=== PATIENT | female | born 1990 | race Caucasian/White ===

== ENCOUNTER 2024-09-07 15:32 | Observation (INO) | payer OTHER, SELFPAY ==
--- NOTE | 2024-09-07 15:32 | OBADM ---
This patient, Pamela Pearson, admitted to the OB room [facility] for observation. Patient/family oriented to hospital policies and general routines including ID bracelet, bed and alarms, visiting hours, pain management, procedures, bathroom and other care routines, personal items, smoking policy, room service/diet, and visiting hours. Patient/Family are encouraged to report perceived risks to care and to ask questions if they do not understand what they are told or what they should do.
[2024-09-07 15:55] VITALS: BMI 22.2
[2024-09-07 16:30] VITALS: BP 100/56; PULSE 89
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
--- OUTSIDE RECORDS SUMMARY | 2024-09-07 16:30 | XMS_ITS | Clinical Summary ---
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 Gender Identity Not on file Sexual Orientation Not on file Last Filed Vital Signs Vital Sign Reading Time Taken Comments Blood Pressure 105/72 07/06/2021 6:25 PM CDT Pulse 109 07/06/2021 6:25 PM CDT Temperature 36.7 C (98 F) 07/06/2021 6:20 PM CDT Respiratory Rate 18 07/06/2021 6:25 PM CDT Oxygen Saturation 97% 07/06/2021 6:25 PM CDT Inhaled Oxygen Concentration - - Weight 52.2 kg (115 lb) 07/06/2021 4:20 PM CDT Height 167.6 cm (5' 6) 07/06/2021 4:20 PM CDT Body Mass Index 18.56 07/06/2021 4:20 PM CDT Plan of Treatment Not on file Insurance [address] [place] [employer] [id number] [place] [address] [facility] Care Teams Stamping Machine Operator Relationship Specialty Start Date End Date Provider, None [place] PCP - General 07/06/21
--- OUTSIDE RECORDS SUMMARY | 2024-09-07 16:31 | XMS_ITS | Referral Summary ---
Author Organization [facility] [address] Address Formerly [facility] 5th [place] [address] Care Team Providers Care Belt Loop Machine Operator Name Role Phone Mayur Pa MD Primary Care Provider [phone] Encounters Date Type Department Care Team Description 08/02/2024 12:45 PM CDT Office Visit [facility] at [address] [place] [address] Rosio Brody MD Palpitations (Primary Dx) 07/05/2024 Telephone [facility] JEFFREY [address] [place] [address] Prachi Lyons MD transfer care 06/21/2024 Results Follow-Up [facility] JEFF[facility] [address] [place] [address] Prachi Lyons MD Drugs of Abuse Screen, Urine with Reflex Confirmation, CBC with auto differential, Hepatitis B Surface Antigen Blood, Additional followed-up results: 11 06/19/2024 2:25 PM CDT Lab [address] Supervision of other normal , antepartum 06/19/2024 Results Follow-Up [facility] JEFFREY [address] [place] [address] Prachi Lyons MD US Ob Under 14 Weeks 06/19/2024 1:00 PM CDT Office Visit [facility]FF[facility] [address] [place] [address] Prachi Lyons MD Supervision of other normal , antepartum (Primary Dx); 1st degree AV block; Vaginal discharge during in first trimester 06/15/2024 Telephone [facility] [facility] [address] [place] [address] Prachi Lyons MD Headache from Last 3 Months Allergies No known active allergies Medications multivitamin tabletIndication s:Vitamin Deficiency Prevention Take 1 tablet by mouth Active Active Problems Problem Noted Date Diagnosed Date Maternal varicella, non-immune 06/21/2024 Overview (06/21/2024): 06/21/2024-will plan to vaccinate Not immune to rubella 06/21/2024 Overview (06/21/2024): 06/22/2024-will plan to vaccinate Supervision of other normal , antepartu m 06/19/2024 Assessment & Plan (06/19/2024 5:14 PM CDT): Doing well Vaginal discharge during in first trim deandre 06/19/2024 Assessment & Plan (06/19/2024 5:06 PM CDT): Vaginitis profile done Palpitations 09/29/2023 Assessment & Plan (09/29/2023 2:40 PM CDT): Reviewed EKG and prior findigns. WIll monitor response to cardiology referral and will check structural echo and r/o electrolyte abnormalities. Check event monitor. 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 - Dr. Pino Last visit was about a year ago. She has done a 30d holter monitor She has had an echo Primary is Dr. Pa. 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 - Dr. Pino Last visit was about a year ago. She has done a 30d holter monitor She has had an echo Primary is Dr. Pa. Chart reviewed Will see if she can get back in to see cardiology My need MFM if they wont. Estimated Date of Delivery Comme nts Yes 12/31/2024 Based on last me nstrual period of 03/26/2024 (Exact Date) Immunizations Immunization Administration Dates Next Due DTaP 01/25/1997, 5,03/31/1993,01/30,1992 HPV, Unspecified 01/16/2007,09/14/2006, 7 Hep B, Adolescent or Pediatric 07/01/1993,1993,02/03/1993 HiB 01/14/1994, 4,01/30/1993,11/25 IPV 01/25/1997, 5,01/30/1993,12/02 Influenza, Quadrivalent, Spl it, Preservative Free, Intramuscular 01/27/2023 Influenza, Unspecified 09/29/2023(Deferr ed: Patient Refused),10/29/2022(Deferred: Patient Refused) MMR 01/25/1997,01/14/1994 Meningococcal A,C,W,Y-TT (Ak a Menquadfi) 01/16/2007 Tdap 07/15/2006 Social History Tobacco Use Types Packs/Day Years Used Date Smoking Tobacco: Never Smokeless Tobacco: Never Tobacco Cessation:Counseling Given: Not Answered Humiliation, Afraid, Rape, and Kick questionnair e Answer Date Recorded Within the last year, have y ou been afraid of your partner or ex-partner? No 06/19/2024 Within the last year, have y ou been humiliated or emotionally abused in other ways by your partner or ex-partner? No Within the last year, have y ou been kicked, hit, slapped, or otherwise physically hurt by your partner or ex-partner? No 06/19/2024 Within the last year, have y ou been raped or forced to have any kind of sexual activity by your partner or ex-partner? No 06/19/2024 PHQ-2 Answer Date Recorded PHQ-2 Total Score (If total score is 3 or more points, staff should administer the PHQ-9) 0 09/29/2023 Estimated Date of Delivery Comme nts Yes 12/31/2024 Based on last me nstrual period of 03/26/2024 (Exact Date) Sex and Gender Information Value Date Recorded Sex Assigned at Not on file Legal Sex Female 3:27 PM CDT Gender Identity Not on file Sexual Orientation Not on file Last Filed Vital Signs Vital Sign Reading Time Taken Comments Blood Pressure 113/77 08/02/2024 1:23 PM CDT Pulse 109 08/02/2024 1:23 PM CDT Temperature 36.7 C (98.1 F) 09/29/2023 9:55 AM CDT Respiratory Rate 18 09/29/2023 9:55 AM CDT Oxygen Saturation 99% 09/29/2023 9:55 AM CDT room air Inhaled Oxygen Concentration - - Weight 59.4 kg (131 lb) 08/02/2024 1:23 PM CDT Height 167.6 cm (5' 6) 08/02/2024 1:23 PM CDT Body Mass Index 21.14 08/02/2024 1:23 PM CDT Plan of Treatment Not on file Procedures Procedure Name Priority Date/Time Associated Diagnosis Comments DIFFERENTIAL AUTO Routine 06/19/2024 2:2 5 PM CDT Supervision of other normal , antepartum ANTIBODY SCREEN Routine 06/19/2024 2:25 PM CDT Supervision of other normal , antepartum ABO/RH Routine 06/19/2024 2:25 PM CDT Supervision of other normal , antepartum VITAMIN D 25 HYDROXY Routine 06/19/2024 2:25 PM CDT Supervision of other normal , antepartum TYPE AND SCREEN Routine 06/19/2024 2:25 PM CDT Supervision of other normal , antepartum CBC WITH AUTO DIFFERENTIAL Routine 06/19/2024 2:25 PM CDT Supervision of other normal , antepartum DRUGS OF ABUSE SCREEN, URINE WITH REFLEX CONFIRMATION Routine 06/19/2024 2:25 PM CDT Supervision of other normal , antepartum URINE CULTURE Routine 06/19/2024 2:25 PM CDT Supervision of other normal , antepartum VARICELLA ZOSTER ANTIBODY, IGG Routine 06/19/2024 2:25 PM CDT Supervision of other normal , antepartum RUBELLA IGG Routine 06/19/2024 2:25 PM CDT Supervision of other normal , antepartum RPR Routine 06/19/2024 2:25 PM CDT Supervision of other normal , antepartum HIV 1/2 ANTIBODY PLUS P24 ANTIGEN Routine 06/19/2024 2:25 PM CDT Supervision of other normal , antepartum HEPATITIS C ANTIBODY Routine 06/19/2024 2:25 PM CDT Supervision of other normal , antepartum HEPATITIS B SURFACE ANTIGEN Routine 06/19/2024 2:25 PM CDT Supervision of other normal , antepartum PAP AND HPV, REFLEX TO HPV GENOTYPES Routine 06/19/2024 2:03 PM CDT SURESWAB ADVANCED VAGINITIS, TMA Routine 06/19/2024 2:03 PM CDT Vaginal discharge during in first trimester N. GONORRHOEAE/C. TRACHOMATIS AMPLIFICATION Routine 06/19/2024 2:03 PM CDT Supervision of other normal , antepartum from Last 3 Months Results * Drugs of Abuse Screen, Urine with Reflex Confirmation (06/19/2024 2:25 PM CDT) [facility] Amphetamine, ur Not Detected CutOff 500ng/mL Comment: Interpretive Data - Amphetamines: Samples containing greater than 500 ng/mL d-methamphetamine or other cross-reacting amphetamine compounds are reported as positive. Amphetamine immunoassays are subject to significant false positive rates due to cross-reactivity of non-amphetamine drugs. Confirmatory testing required for definitive results. Current Interpretive Data was last reviewed 2022. Barbiturates, ur Not Detected CutOff 200ng/mL [facility] ([place]) Comment: Interpretive Data - Barbiturates: Samples containing greater than 200 ng/mL secobarbital or other cross-reacting barbiturate compounds are reported as positive. False positive and false negative results are possible. Confirmatory testing required for definitive results. Current Interpretive Data was last reviewed 2022. Benzodiazepines, ur Not Detected CutOff 100ng/mL [facility] ([place]) Comment: Interpretive Data - Benzodiazepines: Samples containing greater than 100 ng/mL nordiazepam or other cross-reacting compounds are reported as positive. False positive and false negative results are possible. Confirmatory testing required for definitive results. Current Interpretive Data was last reviewed 2022. Cannabinoids, ur Not Detected CutOff 50 ng/mL [facility] ([place]) Comment: Interpretive Data - Cannabinoids: Samples containing greater than 50 ng/mL delta-9 THC -COOH or other cross- reacting compounds are reported as positive. False positive and false negative results are possible. Confirmatory testing required for definitive results. Current Interpretive Data was last reviewed 2022. Cocaine, ur Not Detected CutOff 150ng/mL [facility] ([place]) Comment: Interpretive Data - Cocaine: Samples containing greater than 150 ng/mL benzoylecgonine or other cross- reacting compounds are reported as positive. False positive and false negative results are possible. Confirmatory testing required for definitive results. Current Interpretive Data was last reviewed 2022. Fentanyl, Ur Not Detected CutOff 5 ng/mL [facility] ([place]) Comment: Interpretive Data - Fentanyl: Samples containing greater than 5 ng/mL norfentanyl, fentanyl, or other cross-reacting fentanyl compounds are reported as positive. False positive and false negative results are possible. Confirmatory testing required for definitive results. Current Interpretive Data was last reviewed 2023. Methadone, ur Not Detected CutOff 300ng/mL [facility] ([place]) Comment: Interpretive Data - Methadone: Samples containing greater than 300 ng/mL d,l-methadone or other cross-reacting compounds are reported as positive. False positive and false negative results are possible. Confirmatory testing required for definitive results. Current Interpretive Data was last reviewed 2022. Opiates, ur Not Detected CutOff 300ng/mL [facility] ([place]) Comment: Interpretive Data - Opiates: Samples containing greater than 300 ng/mL morphine or other cross-reacting compounds are reported as positive. False positive and false negative results are possible. Confirmatory testing required for definitive results. Current Interpretive Data was last reviewed 2022. Oxycodone, ur Not Detected CutOff 100ng/mL [facility] ([place]) Comment: Interpretive Data - Oxycodone: Samples containing greater than 100 ng/mL oxycodone or other cross-reacting compounds are reported as positive. False positive and false negative results are possible. Confirmatory testing required for definitive results. Current Interpretive Data was last reviewed 2022. Phencyclidine, ur Not Detected CutOff 25 ng/mL [facility] ([place]) Comment: Interpretive Data - Phencyclidine: Samples containing greater than 25 ng/mL phencyclidine or other cross-reacting compounds are reported as positive. False positive and false negative results are possible. Confirmatory testing required for definitive results. Current Interpretive Data was last reviewed 2022. Urine Creatinine 93 mg/dL [facility]U [facility] ([place]) Comment: Interpretive Data Urine Creatinine: < 10 mg/dL is extremely dilute = or > 10 but < 20 mg/dL is dilute = or > 20 mg/dL is normal Current Interpretive Data was last revised on 2017. Urine 06/19/2024 2:25 PM CDT 06/19/2024 4:04 PM CDT Narrative [facility] ([place]) - 06/19/2024 4:44 PM CDT Drug of Abuse screening is performed by immunoassay for medical purposes only. This is not to be used for Pain Management purposes. If Detected, confirmation testing will be performed for Amphetamines, Cocaine, Fentanyl, Methadone, Opiates, Oxycodone or Phencyclidine. us Prachi Lyons MD LAB URINE ORDERABLE S Final Result [facility] ([place]) [address] [facility] [place] [address] * (ABNORMAL) Differential, auto (06/19/2024 2:25 PM CDT) Neutrophil abs 7.56(H) 1.50 - 6.50 K/cumm Imm gran abs 0.03 0.00 - 0.10 K/cumm [facility] ([place]) Lymphocyte abs 2.22 0.80 - 3.30 K/cumm [facility] ([place]) Monocyte abs 0.56 0.20 - 0.80 K/cumm [facility] ([place]) Eosinophil abs 0.04 0.00 - 0.50 K/cumm [facility] ([place]) Basophil abs 0.04 0.00 - 0.10 K/cumm [facility] ([place]) Neutrophil pct 72.3 % [facility] ([place]) Comment: Interpretive Data Percent cell count reference ranges are not reported, since discordance with absolute values may lead to misinterpretation of CBC data. Current Interpretive Data was last revised on 2017. Imm gran pct 0.3 % [facility] ([place]) Comment: Interpretive Data Percent cell count reference ranges are not reported, since discordance with absolute values may lead to misinterpretation of CBC data. Current Interpretive Data was last revised on 2017. Lymphocyte pct 21.2 % [facility] ([place]) Comment: Interpretive Data Percent cell count reference ranges are not reported, since discordance with absolute values may lead to misinterpretation of CBC data. Current Interpretive Data was last revised on 2017. Monocyte pct 5.4 % [facility] ([place]) Comment: Interpretive Data Percent cell count reference ranges are not reported, since discordance with absolute values may lead to misinterpretation of CBC data. Current Interpretive Data was last revised on 2017. Eosinophil pct 0.4 % [facility] ([place]) Comment: Interpretive Data Percent cell count reference ranges are not reported, since discordance with absolute values may lead to misinterpretation of CBC data. Current Interpretive Data was last revised on 2017. Basophil pct 0.4 % [facility] ([place]) Comment: Interpretive Data Percent cell count reference ranges are not reported, since discordance with absolute values may lead to misinterpretation of CBC data. Current Interpretive Data was last revised on 2017. Blood 06/19/2024 2:25 PM CDT 06/19/2024 3:57 PM CDT us Prachi Lyons MD LAB BLOOD ORDERABLE S Final Result Performing Organization Address [facility]/ZIP Co de Phone Number [facility] ([place]) 1 [place] [address] * HIV 1/2 Antibody plus p24 Antigen Blood (06/19/2024 2:25 PM CDT) [facility] HIV 1/2 ab + p24 ag Nonreactive Nonreactive Comment: Nonreactive for HIV-1 antigen and HIV-1/HIV-2 antibodies. No laboratory evidence of HIV infection. If acute HIV infection is suspected, consider testing for HIV-1 RNA. Testing performed by: [facility], [address] [place] [address], [id number] Blood 06/19/2024 2:25 PM CDT 06/19/2024 7:58 PM CDT us Prachi Lyons MD LAB MICROBIOLOGY - GENERAL ORDERABLES Final Result Performing Organization Address [facility] Co de Phone Number [facility] ([place]) 1 [place] [address] * (ABNORMAL) CBC with auto differential (06/19/2024 2:25 PM CDT) [facility] WBC 10.45(H) 3.80 - 9.90 K/cumm Hgb 13.9 11.9 - 15.5 g/dL [facility] ([place]) Hct 40.1 35.6 - 45.5 % [facility] ([place]) Plt 309 150 - 400 K/cumm [facility] ([place]) MPV 10.6 9.1 - 12.3 fL [facility] ([place]) RBC 4.43 3.90 - 5.20 M/cumm [facility] ([place]) MCV 90.5 81.3 - 96.4 fL [facility] ([place]) MCH 31.4 27.1 - 33.3 pg [facility] ([place]) MCHC 34.7 32.3 - 35.7 g/dL [facility] ([place]) RDW CV 12.8 11.1 - 14.9 % [facility] ([place]) RDW SD 41.8 35.7 - 48.1 fL [facility] ([place]) NRBC abs 0.00 0.00 - 0.01 K/cumm [facility] ([place]) Blood 06/19/2024 2:25 PM CDT 06/19/2024 3:57 PM CDT us Prachi Lyons MD LAB BLOOD ORDERABLE S Final Result Performing Organization Address [facility] Co de Phone Number [facility] ([place]) 1 [facility] [employer] [address] [place] [address] * Hepatitis C antibody Blood (06/19/2024 2:25 PM CDT) Hep C Ab Nonreactive Nonreactive Comment: Interpretive Data Nonreactive: Antibodies to HCV not detected. Does NOT exclude the possibility of recent exposure to HCV. Equivocal: Equivocal for HCV antibodies. Supplemental molecular testing will be automatically performed to determine infection status in accordance with current CDC screening recommendations. Reactive: Positive for HCV antibodies. This may represent current or past HCV infection. Supplemental molecular testing will be automatically performed to determine current infection status in accordance with current CDC screening recommendations. Interpretive data was last revised on 2019. Testing performed by: [facility], [address] [place] [address]., [id number] Blood 06/19/2024 2:25 PM CDT 06/19/2024 8:00 PM CDT us Prachi Lyons MD LAB MICROBIOLOGY - GENERAL ORDERABLES Final Result Performing Organization Address City/[facility] Co de Phone Number [facility] ([place]) 1 [facility] [employer] [address] [place] [address] * ABO/Rh (06/19/2024 2:25 PM CDT) ABO/Rh A Positive Blood 06/19/2024 2:25 PM CDT 06/19/2024 3:57 PM CDT Narrative [facility] ([place]) - 06/19/2024 4:59 PM CDT Has the patient had Daratumumab or Isatuximab in the past 6 months?->Unknown Prachi Lyons MD LAB BLOOD BANK TEST ORDERABLES Final Result JESUNARA SHEY ([place]) 1 [facility] [place] [address] * (ABNORMAL) Vitamin D 25 hydroxy (06/19/2024 2:25 PM CDT) Pathologist [facility] Vitamin D 25-OH 24(L) 30 - 80 ng/mL Blood 06/19/2024 2:25 PM CDT 06/19/2024 3:57 PM CDT Prachi Lyons MD LAB BLOOD ORDERABLE S Final Result Performing Organization Address City/[facility]/ZIP Co de Phone Number [facility] ([place]) 1 [facility] [employer] [address] [place] [address] * (ABNORMAL) Rubella IgG antibody Blood (06/19/2024 2:25 PM CDT) Pathologist [facility] Rubella IgG Nonreactiv e(A) Comment: Nonreactive: No detectable antibody to rubella. Such individuals are presumed to be uninfected with rubella and to be susceptible to primary infection. Testing performed by: [facility], [address] [facility], [place]., [address] Blood 06/19/2024 2:25 PM CDT 06/19/2024 6:24 PM CDT Prachi Lyons MD LAB MICROBIOLOGY - GENERAL ORDERABLES Final Result [facility] ([place]) 1 [place] [address] * RPR Blood (06/19/2024 2:25 PM CDT) Pathologist [facility] RPR Nonreactive Nonreactive Comment:Testing performed by : [facility], [address] [place] [address], [id number] Blood 06/19/2024 2:25 PM CDT 06/19/2024 8:04 PM CDT us Prachi Lyons MD LAB MICROBIOLOGY - GENERAL ORDERABLES Final Result [facility] ([place]) 1 [place] [address] * Hepatitis B Surface Antigen Blood (06/19/2024 2:25 PM CDT) [facility] HepBsAg Nonreactive Nonreactive Comment:Testing performed by : [facility], [address] [place] [address], [id number] Blood 06/19/2024 2:25 PM CDT 06/19/2024 8:00 PM CDT us Prachi Lyons MD LAB MICROBIOLOGY - GENERAL ORDERABLES Final Result Performing Organization Address City/[facility]/ZIP Co de Phone Number [facility] ([place]) 1 [place] [address] * Antibody screen (06/19/2024 2:25 PM CDT) [facility] Sourav, indirect, Gel Interpretation Negative ABSC Blood 06/19/2024 2:25 PM CDT 06/19/2024 3:57 PM CDT Narrative [facility] ([place]) - 06/19/2024 4:59 PM CDT Has the patient had Daratumumab or Isatuximab in the past 6 months?->Unknown us Prachi Lyons MD LAB BLOOD BANK TEST ORDERABLES Final Result [facility] ([place]) 1 [place] [address] * Urine culture Urine, clean voided (06/19/2024 2:25 PM CDT) Report Final Report: Less than 100,000 colonies/mL (clinically insignificant growth based on current clinical standards) Comment:Testing performed by : [facility], [address] [place] [address], [id number] Organism (CLINICALLY INSIGNIFICANT GROWTH LUZ COUNTS INCLUDE 234 BEDS AT THE [facility] ([place]) Urine, clean voided 06/19/2024 2:25 PM CDT 06/19/2024 6:53 PM CDT Narrative [facility]ES[facility]ARA [facility] ([place]) - 06/20/2024 7:41 PM CDT Testing performed by [facility] ([phone]) us Prachi Lyons MD LAB MICROBIOLOGY - GENERAL ORDERABLES Final Result Performing Organization Address City/[facility]/ZIP Co de Phone Number [facility] ([place]) 1 [place] [address] * (ABNORMAL) Varicella Zoster IgG antibody Blood (06/19/2024 2:25 PM CDT) [facility] IgG Equivocal( A) Reactive Comment: Equivocal: Presence or absence of detectable antibodies to Varicella-zoster virus cannot be determined. Submit new specimen if clinically indicated. Testing performed by: [facility], [address] [place] [address]., [id number] Blood 06/19/2024 2:25 PM CDT 06/19/2024 6:24 PM CDT Prachi Lyons MD LAB MICROBIOLOGY - GENERAL ORDERABLES Final Result [facility] ([place]) 1 [facility] [place] [address] * Pap and HPV, reflex to HPV Genotypes (06/19/2024 2:03 PM CDT) CLINICAL INFORMATION: [facility] Comment:None given LMP [facility] Comment:NONE GIVEN Previous Pap [facility] Comment:NONE GIVEN Prev. Bx [facility] Comment:NONE GIVEN SOURCE: [facility] Comment:Cervix, Endocervix Pap, specimen adequacy [facility] Comment: Satisfactory for evaluation. Endocervical/transformation zone component present. Age and/or menstrual status not provided HPV interp [facility] Comment: Cytology Results: Negative for intraepithelial lesion or malignancy. COMMENTS [facility] Comment: This Pap test has been evaluated with computer assisted technology. Chief Warden [facility] Comment: GAL SAUNDERS(ASCP) CT Screening Location: [place] [address] [address] [id number] Comment [facility] Comment: EXPLANATORY NOTE: The Pap is a screening test for cervical cancer. It is not a diagnostic test and is subject to false negative and false positive results. It is most reliable when a satisfactory sample, regularly obtained, is submitted with relevant clinical findings and history, and when the Pap result is evaluated along with historic and current clinical information. Human papillomavirus DNA, High Risk E6/E7 Not Detected NOT DETECTED [facility] Comment: Not Detected High Risk HPV types (16,18,31,33,35,39,45,51,52, 56,58,59,66,68) were not detected. Other HPV types which cause anogenital lesions may be present. The significance of the other types of HPV in malignant processes has not been established. Methodology: Real Time PCR 06/19/2024 2:03 PM CDT 06/20/2024 11:05 PM CDT us Prachi Lyons MD LAB CYTOLOGY ORDERA BLES Final Result [facility] [address] [address] [place] [address] [place] [address] [place] [address] * SureSwab Advanced Vaginitis, TMA Endocervical/vaginal (06/19/2024 2:03 PM CDT) SureSwab(R) ADV Bacterial vaginosis (BV), TMA NEGATIVE NEGATIVE [facility] Bárbara species NOT DETECTED NOT DETECTED [facility] Bárbara glabrata NOT DETECTED NOT DETECTED [facility] Comment: Bárbara species C. albicans, C. tropicalis, C. parapsilosis, and/or C. dubliniensis can be detected, but not differentiated, in the Bárbara spp. result. Trichomonas vaginalis (TV), TMA NOT DETECTED NOT DETECTED [facility] Endocervical/vag inal 06/19/2024 2:03 PM CDT 06/20/2024 8:51 AM CDT Prachi Lyons MD LAB MICROBIOLOGY - GENERAL ORDERABLES Final Result Performing Organization Address City/[facility]/ZIP Co de Phone Number [facility] [address] [place] [address] * N. gonorrhoeae/C. trachomatis Amplification Thin prep-Endocervical (06/19/2024 2:03 PM CDT) Pathologist [facility] C. trachomatis RNA NOT DETECTED NOT DETECTED [facility] N. gonorrhoeae RNA NOT DETECTED NOT DETECTED [facility] Comment [facility] Comment: The analytical performance characteristics of this assay, when used to test SurePath(TM) specimens have been determined by [facility]. The modifications have not been cleared or approved by the FDA. This assay has been validated pursuant to the CLIA regulations and is used for clinical purposes. For additional information, please refer to https://education.[employer].org.Foodscovery/faq/VGY279 (This link is being provided for information/ educational purposes only.) Thin prep-Endocervica l (None) 06/19/2024 2:03 PM CDT 06/20/2024 11:05 PM CDT Prachi Lyons MD LAB MICROBIOLOGY - GENERAL ORDERABLES Final Result Performing Organization Address City/[facility]/ZIP Co de Phone Number [facility] [address] [place] [address] from [place] [address] [place] [id number] [facility] Care Teams Belt Loop Machine Operator Relationship Specialty Start Date End Date Mayur Pa MD [address] [place] [address] PCP - General Family Medicine 09/29/23
--- OUTSIDE RECORDS SUMMARY | 2024-09-07 16:31 | XMS_ITS | Data Portability ---
Author Organization [facility] Address [address] [place] [address] [place] [address] Care Team Providers Care Fur Puller Name Role Phone MELO CEVALLOS Primary Care Provider [phone] Assessment Encounter Date Assessment Date Assessment LastModified by Organization Details LastModified Time 08/15/2024 08/15/2024 Patient is __20_weeks . Discussed plan. Not available 08/16/2024 20:51:04 Plan of Treatment Reminders Order Date Submit Date Provider Last Modified By Organization Details Last Modified Time Details Appointments U/S OB GROWTH 2024 03:00P M ULTRASOUND Not available Not available Not available OB ROUTINE 2024 03:45P M Tigist Sheriff CNM Not available Not available Not available Lab culture , urine 2024 025 [facility] (Lab), [address], [place], [address], 07/21/2024 22:34:50 drug screen, urine 2024 025 [facility], [address], [place], [address], 07/20/2024 17:14:53 CT + NG + TV, RNA, unspeci fied specime n 2024 025 [facility] (Lab), [address], [place], [address], 07/21/2024 12:01:34 Referral None recorde d. Procedures None recorde d. Surgeries None recorde d. Imaging US, obstetr ic, 2nd or 3rd trimest er 2024 025 [email or web address] [facility], [address], [place], [address], 08/15/2024 18:20:23 US, obstetr ic, limited 2024 025 [email or web address] [facility], [address], [place], [address], 07/20/2024 17:58:38 Medication Orders None recorde d. Patient TargetsNo targets recorded. Patient InstructionsNo instructions recorded. Reason for Referral None Reported. Results Created Date Observation Date Name Description Value Unit Range Abnormal Flag Note LastModifiedBy Organization Detail LastModifiedTime 07/21/1907/20/2024 CT/GC AND TRICH OMONA S VAGIN TRELL (RRNA ), URINE chlamydia trachomatis, PCR Negati ve negati ve Not Available [facility] (Lab) [address] [facility], [place], [address], 07/21/2024 12:01:34 07/21/19 25 07/20/2024 CT/GC AND TRICH OMONA S VAGIN TRELL (RRNA ), URINE neisseria gonorrhoeae, PCR Negati ve negati ve Not Available [facility] (Lab) [address] [facility], [place], [address], 07/21/2024 12:01:34 07/21/19 25 07/20/2024 CT/GC AND TRICH OMONA S VAGIN TRELL (RRNA ), URINE trichomonas vaginalis ribosomal RNA (rrna) Negati ve negati ve Not Available [facility] (Lab) [address], [place], [address], 07/21/2024 12:01:34 07/21/19 25 07/20/2024 CULTU RE: URINE result report SEE RESULT S BELOW Test: Cultu re: Urine Speci men Sourc e: Urine - Clean Catch Speci men Type: Urine Speci men Date: 2024 1621 Resul t Date: 2024 2131 Resul t Statu s: Final resul t Abnor mal: No Resul ting Lab: [facility] [address] [facility] [address] Tel: CULTU RE ----- ----- ----- --- No growt h in 1 day (dete ction level of 10,00 0 colon ies / ml.) Not Available [facility] (Lab) [address], [place], [address], 07/21/2024 22:34:50 07/21/19 25 07/20/2024 drug scree n, urine Amphetamines : negati ve Not Available [facility] [address], [place], [address], 07/20/2024 17:14:02 07/21/19 25 07/20/2024 drug scree n, urine Cannabinoids : negati ve Not Available [facility] [address], [place], [address], 07/20/2024 17:14:02 07/21/19 25 07/20/2024 drug scree n, urine Cocaine: negati ve Not Available [facility] [address], [place], [address], 07/20/2024 17:14:02 07/21/19 25 07/20/2024 drug scree n, urine Opiates: negati ve Not Available [facility] [address], [place], [address], 07/20/2024 17:14:02 07/21/19 25 07/20/2024 drug scree n, urine Phenocyclidi ne: negati ve Not Available [facility] [address], [place], [address], 07/20/2024 17:14:02 07/21/19 25 07/20/2024 drug scree n, urine Barbiturates : negati ve Not Available [facility] [address], [place], [address], 07/20/2024 17:14:02 07/21/19 25 07/20/2024 drug scree n, urine Benzodiazepi jamie: negati ve Not Available [facility] [address], [place], [address], 07/20/2024 17:14:02 07/21/19 25 07/20/2024 drug scree n, urine Ethanol: negati ve Not Available [facility] [address], [place], [address], 07/20/2024 17:14:02 07/21/19 25 07/20/2024 drug scree n, urine Hallucinogen s: negati ve Not Available [facility] [address], [place], [address], 07/20/2024 17:14:02 07/21/19 25 07/20/2024 drug scree n, urine Inhalants: negati ve Not Available [facility] [address], [place], [address], 07/20/2024 17:14:02 07/21/19 25 07/20/2024 drug scree n, urine Anabolic Steroids: negati ve Not Available [facility] [address], [place], [address], 07/20/2024 17:14:02 07/21/19 25 07/20/2024 drug scree n, urine Other: negati ve Not Available [facility] [address], [place], [address], 07/20/2024 17:14:02 07/21/19 25 07/20/2024 US, obste tric, limit ed No observ ation record ed. [email or web address] [facility] [address], [place], [address], 07/20/2024 17:56:44 07/21/19 25 07/20/2024 US, obste tric, limit ed No observ ation record ed. [email or web address] [facility] [address], [place], [address], 07/24/2024 23:05:15 08/16/19 25 08/15/2024 US, obste tric, 2nd or 3rd trime ster No observ ation record ed. [email or web address] [facility] [address], [place], [address], 08/15/2024 18:44:14 08/16/19 25 08/15/2024 US, obste tric, follo w-up No observ ation record ed. [email or web address] [address], [place], [address], 08/17/2024 13:28:32 Result Notes None recorded. Problems Name Problem SNOMED Code Status Onset Date Resolution Date Notes Provider Name and Address Organization Details Recorded Time Anxiety 72253153 Active 2024 Jo rene, [facility] 18:27:51 First degree atriovent ricular block 311322890 Active 2024 had a echo 10/2023 and pt is seeing cardiolog ist 07/26/2024 , will review cardiolog y notes with md, does not require telelmetr y during delivery Tigist Sheriff CNM [address], [place], [address], [facility] 20:51:47 33283710 Active 2024 Jo rene, [facility] 18:26:57 First degree atriovent ricular block 449296519 Active 2024 had a echo 10/2023 and pt is seeing cardiolog ist 07/26/2024 , will review cardiolog y notes with md, does not require telelmetr y during delivery Tigist Sheriff CNM [address], [place], [address], [facility] 20:51:47 Anxiety 45679598 Active 2024 Jo rene, [facility] 18:27:51 Past history of gestation al diabetes mellitus 911301587 Active 2024 first only Tigist Sheriff CNM [address], [place], [address], [facility] 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 20:52:05 Problem Notes None recorded. Procedures Surgical History Date Name Laterality Status Provider Name and Address Organization Details Recorded Time 5 Date of Last Pap Smear completed Jo Zhang [facility] 07/20/2024 18:18:09 0 extraction of wisdom tooth completed Jo Zhang [facility] 07/20/2024 18:23:27 Imaging Results None recorded. Procedure Notes None recorded. Medical Equipment None Reported. Allergies No known drug allergies Medications Not known to be on any medication Vitals Date Recorded Body height Body mass index (BMI) Body weight Systolic And Diastolic Provider Name and Address Organization Details Last Updated DateTime 07/20/2024 161.93 cm 22.3 kg/m2 38947.42 g 123/74 mm[Hg] Jo Zhang [facility] 07/20/2024 18:17:52 Date Recorded Body weight Body mass index (BMI) Body height Systolic And Diastolic Provider Name and Address Organization Details Last Updated DateTime 08/15/2024 96030.562 32 g 38.6 kg/m2 161.93 cm 105/68 mm[Hg] Jo Zhang [facility] 08/15/2024 16:54:30 Social History Question Answer Notes LastModified by Organizat ion Details LastModified Time Tobacco Smoking Status Never Smoker Jo Zhang null, [facility] 07/20/2024 18:23:10 Do You Have An Advance Directive? No [email or web address] Information n ot available 07/20/2024 If You Are , What Was Your Level Of Alcohol Consumption Prior To ? Occasional [email or web address] Information not available 07/20/2024 How Many Years Have You Consumed Alcohol? 14 Information not available 07/20/2024 Are You Blind Or Do You Have Difficulty Seeing? No [email or web address] Information n ot available 07/20/2024 What Is Your Level Of Caffeine Consumption? Moderate Information not available 07/20/2024 How Much Tobacco Do You Chew? None [email or web address] Information not available 07/20/2024 In The 14 Days Before Symptom Onset, Have You Had Close Contact With A Laboratory-confirm ed COVID-19 While That Case Was Ill? No [email or web address] Information n ot available 07/20/2024 In The 14 Days Before Symptom Onset, Have You Had Close Contact With A Person Who Is Under Investigation For COVID-19 While That Person Was Ill? No [email or web address] Information not available 07/20/2024 Have You Been To An Area Known To Be High Risk For COVID-19? No [email or web address] Information not available 07/20/2024 Are You Deaf Or Do You Have Serious Difficulty Hearing? No [email or web address] Information not available 07/20/2024 What Type Of Diet Are You Following? REGULAR [email or web address] Information n ot available 07/20/2024 What Is The Highest Grade Or Level Of School You Have Completed Or The Highest Degree You Have Received? TI03547-1 [email or web address] Information not available 07/20/2024 Are There Any Guns Present In Your Home? No [email or web address] Information not available 07/20/2024 Do You Use Protection During Sex? No [email or web address] Information not available 07/20/2024 Do You Use Your Seat Belt Or Car Seat Routinely? Yes [email or web address] Information not available 07/20/2024 Do You Have Smoke And Carbon Monoxide Detectors In Your Home? Yes [email or web address] Information not available 07/20/2024 How Much Tobacco Do You Smoke? No [email or web address] Information not available 07/20/2024 Do You Use Sunscreen Routinely? Yes [email or web address] Information not available 07/20/2024 Has Tobacco Cessation Counseling Been Provided? No [email or web address] Information not available 07/20/2024 Have You Used IV Drugs? No [email or web address] Information not available 07/20/2024 Do You Have Difficulty Walking Or Climbing Stairs? No [email or web address] Information not available 07/20/2024 Sex: Unknown Functional Status Question Answer Note LastModified by Organizat ion Details LastModified Time Do you use any illicit or recreational drugs? No Information not available 07/20/2024 Do you or have you ever used any other forms of tobacco or nicotine? No [email or web address] Information not available 07/20/2024 What is your level of alcohol consumption? None [email or web address] Information not available 07/20/2024 Are you able to walk? YESWOREST [email or web address] Information not available 07/20/2024 Are you able to care for yourself? 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 No [email or web address] Information not available 07/20/2024 What is your exercise level? Occasional [email or web address] Information not available 07/20/2024 Mental Status Question Answer Note LastModified by Organization D etails LastModified Time Do you feel stressed (tense, restless, nervous, or anxious, or unable to sleep at night)? [id number] [email or web address] Information not available 07/20/2024 Family History Relationship Description Onset Age of this Age Resolved Age Notes LastModified by Organization Details LastModified Time Unspecified Relation Family history unknown [email or web address] Not available 07/29 15:30:49 Mother Malignant neoplasm of uterus [email or web address] Not available 07/20 18:22:11 Maternal Grandmother Malignant neoplasm of lung [email or web address] Not available 07/29 15:30:49 Father Epilepsy from tick bite [email or web address] Not available 08/15/2024 15:30:49 Medical History Condition Response Allergies (Food, seasonal, environmental ) N Other N Drug/Latex Allergies/Reactions N Blood Transfusion N Breast Cancer N Dermatologic Disorders N Lung Disease N Defects or Inherited Disease N Breast Problem N Gestational Diabetes Y Hematologic disorders N Anesthesia Complications N History of STI N Deep Vein Thrombosis N Polycystic ovary syndrome N Anxiety Disorder Y Autoimmune disease N Arthritis N Polyps N Infertility N Acid Reflux (GERD) N History of abnormal pap N Cancer N Varicosities N Stroke N Neurologic/Epilepsy N Endometriosis N High Cholesterol N Fibromyalgia N Headaches N Kidney Disease N Heart Problems Y Thyroid Problems N Kidney or Bladder Problems N GI Problems N Eating Disorder N Anemia Y Art (IVF or FET) N Psychiatric Illness N Ovarian Cancer N Diabetes Y Pulmonary (TB, Asthma) N Hepatitis/Liver Disease N No Past Medical History N Eczema N Urinary Tract Infection N Abuse/Domestic Violence N Asthma N Trauma/Violence N Depression/ depression N Heart Disease N Pre-Eclampsia N Hypertension N Osteoporosis N Thrombophilias N Gynecological History Statement/Question Response Date of Last Mammogram Date of LMP 03/26/2024 On BCP's at Conception? N N Was last menstrual period normal Y STIs/STDs N HPV Vaccine Y Duration of Flow (days) 6 Current Control Method Age at First Child 29 Date of control 06/28/2024 Date of Last Colonoscopy Frequency of Cycle (Q days) 30 Sexually Active? Y Date of DEXA bone scan Age of first menstrual cycle 16 Date of Last Pap Smear 06/19/2024 Sexual Problems? N LMP Definite N Obstetrics History GPAL:G 4 P 2 0 1 2 Type Value Full Term 2 Spontaneous 1 Living 2 Total 4 Past Encounters Encounter ID Performer Location Encounter Start Date Encounter Closed Date Diagnosis/Indication Diagnosis SNOMED-CT Code Diagnosis ICD10 Code Diagnosis Note [id number] Jesus Pineda MD [facility] [address],[place] [address] 07/20/2024 15:37:18 07/20/2024 16:48:12 screening 686929749 Z36.87 Z3A.16 [id number] [facility] [address],[place] [address] 07/20/2024 15:39:12 07/23/2024 03:32:38 Gestation period, 16 weeks 67116717 Z3A.16 s hunt of fetus 75510957 Z34.90 Bacterial disease screening 560738042 Z11.8 [id number] Jesus Pineda MD [facility] [address],[place] [address] 08/15/2024 15:29:05 08/15/2024 16:37:26 Ultrasound scan - obstetric 442945493 Z36.3 Z3A.20 [id number] Tigist Sheriff [facility] [address],[place] [address] 08/15/2024 15:30:34 08/17/2024 12:11:31 Gestation period, 20 weeks 73418996 Z3A.20 Health Concerns Section Related Observation LastModified by Organization Detai ls LastModified Time None Recorded Concern Status LastModified by Organization Details LastModified Time None Recorded Advance Directives Directive N: Payers Insurance Date Sequence Insurance Name Policy Number Policy Nogueira Covered Member ID Nogueira Member ID Guarantor Name 08/19/2024 1 [employer] ( - PPO) Radames Pearson [id number] Pamela Pearson OBGyn Episode Ob Episode Information Episode Created Date Number of Fetuses Patient Bloodtype Patient rh Status Prepregnancy Weight lbs Domestic Partner Domestic Partner Phone Father Name Oncology Consultant Status 07/21/19 25 1 CLOSED Fetus Data First Name Last Name Admitted to NICU Weight (g) Sex Living Outcome Pediatric Complications Fetus ID Race Codes Race Delivery Type 3430.06 2704 M Full Term [id number] Vaginal Delivery Moises Calculation Initial Moises Date Initial Exam Date Initial Exam Provider Initial Ultrasound Date Last Menstrual Period Date Ultra Sound Weeks Gestation 0 Eighteen To Twenty Week Moises Update Ultra Sound Date Fundal Height At Umbil Quickening Date Ultra Sound Latest Weeks Gestation Final Moises Confirmed By Final Moises Confirmed Date Final Moises Date Ultra Sound Latest Days Gestation 0 0 Menstrual History Last Menstrual Date Menses Monthly On Bcp Conception Prior Menses Frequency Hcg Plus Date Menarche Onset Age Delivery Information Delivery Date Delivery Type Labor Anesthesia Weeks Gestation Incision Type Labor Labor Length Hrs Delivered By Post Complications Tubal Sterilization Discharge Date Comments 1 38.6 GDM Discharge Information Feeding Method Contraceptive Method Maternal HG B and HCT Levels Ob Episode Information Episode Created Date Number of Fetuses Patient Bloodtype Patient rh Status Prepregnancy Weight lbs Domestic Partner Domestic Partner Phone Father Name Oncology Consultant Status 07/21/19 1 CLOSED Fetus Data First Name Last Name Admitted to NICU Weight (g) Sex Living Outcome Pediatric Complications Fetus ID Race Codes Race Delivery Type 3401.94 F Full Term [id number] Vaginal Delivery Moises Calculation Initial Moises Date Initial Exam Date Initial Exam Provider Initial Ultrasound Date Last Menstrual Period Date Ultra Sound Weeks Gestation 0 Eighteen To Twenty Week Moises Update Ultra Sound Date Fundal Height At Umbil Quickening Date Ultra Sound Latest Weeks Gestation Final Moises Confirmed By Final Moises Confirmed Date Final Moises Date Ultra Sound Latest Days Gestation 0 0 Menstrual History Last Menstrual Date Menses Monthly On Bcp Conception Prior Menses Frequency Hcg Plus Date Menarche Onset Age Delivery Information Delivery Date Delivery Type Labor Anesthesia Weeks Gestation Incision Type Labor Labor Length Hrs Delivered By Post Complications Tubal Sterilization Discharge Date Comments 3 38 Discharge Information Feeding Method Contraceptive Method Maternal HG B and HCT Levels Ob Episode Information Episode Created Date Number of Fetuses Patient Bloodtype Patient rh Status Prepregnancy Weight lbs Domestic Partner Domestic Partner Phone Father Name Oncology Consultant Status 07/21/19 1 CLOSED Fetus Data First Name Last Name Admitted to NICU Weight (g) Sex Living Outcome Pediatric Complications Fetus ID Race Codes Race Delivery Type , Spontane ous 10125 Moises Calculation Initial Moises Date Initial Exam Date Initial Exam Provider Initial Ultrasound Date Last Menstrual Period Date Ultra Sound Weeks Gestation 0 Eighteen To Twenty Week Moises Update Ultra Sound Date Fundal Height At Umbil Quickening Date Ultra Sound Latest Weeks Gestation Final Moises Confirmed By Final Moises Confirmed Date Final Moises Date Ultra Sound Latest Days Gestation 0 0 Menstrual History Last Menstrual Date Menses Monthly On Bcp Conception Prior Menses Frequency Hcg Plus Date Menarche Onset Age Delivery Information Delivery Date Delivery Type Labor Anesthesia Weeks Gestation Incision Type Labor Labor Length Hrs Delivered By Post Complications Tubal Sterilization Discharge Date Comments 0 Discharge Information Feeding Method Contraceptive Method Maternal HG B and HCT Levels Ob Episode Information Episode Created Date Number of Fetuses Patient Bloodtype Patient rh Status Prepregnancy Weight lbs Domestic Partner Domestic Partner Phone Father Name Oncology Consultant Status 07/21/19 25 1 129 radames Pearson OPEN Fetus Data First Name Last Name Admitted to NICU Weight (g) Sex Living Outcome Pediatric Complications Fetus ID Race Codes Race Delivery Type [id number] Problems Problem Notes Placental bravo Problem Name Start Date End Date Resolution Snomed Code Not e First degree atrioventricular block 07/20/2024 [id number] had a echo 10/2023 and pt is seeing bridge expert 07/26/2024, will review cardiology notes with md, does not require telelmetry during delivery Anxiety 07/20/2024 56302700 Past history of gestational diabetes mellitus 07/22/2024 849095486 first only Placenta circumvallata 08/16/2024 638619 0 rpt growth 32 weeks Moises Calculation Initial Moises Date Initial Exam Date Initial Exam Provider Initial Ultrasound Date Last Menstrual Period Date Ultra Sound Weeks Gestation 12/31/2024 07/20/2024 [email or web address] 07/20/2024 03/26/2024 16 Eighteen To Twenty Week Moises Update Ultra Sound Date Fundal Height At Umbil Quickening Date Ultra Sound Latest Weeks Gestation Final Moises Confirmed By Final Moises Confirmed Date Final Moises Date Ultra Sound Latest Days Gestation 0 [email or web address] 07/20/2024 01/01/20 25 0 Pre- Flowsheet Flowsheet Date 07/20/2024 Berrios Score Blood Edema Fundus Height Fundus Units Glucose Ketones Leukocytes Nitrite Labor Signs Protein Cervic Dilation Cervic Effacement Cervic Station neg none none trace Type Weight in lbs Pre/Post Dialysis Refused Weight 129.05001889858 BP Diastolic BP Location Tested BP Systolic BP Type 74 123 Fetus Heart Rate Present Fetus Movement A No Comments reviewed history 2 vaginal d eliveries in the [place], last was diagnosed first degree AV block, discussed if needs continous telemetry in labor will have to deliver in st. will await cardiology report. begin routine bcare Flowsheet Date 08/15/2024 Berrios Score Blood Edema Fundus Height Fundus Units Glucose Ketones Leukocytes Nitrite Labor Signs Protein Cervic Dilation Cervic Effacement Cervic Station Type Weight in lbs Pre/Post Dialysis Refused BP Diastolic BP Location Tested BP Systolic BP Type Fetus Heart Rate Present Fetus Movement Comments Flowsheet Date 08/15/2024 Berrios Score Blood Edema Fundus Height Fundus Units Glucose Ketones Leukocytes Nitrite Labor Signs Protein Cervic Dilation Cervic Effacement Cervic Station neg none Type Weight in lbs Pre/Post Dialysis Refused 136.819851616562 BP Diastolic BP Location Tested BP Systolic BP Type 68 105 Fetus Heart Rate Present Fetus Movement A Yes Comments Patient is having some disch arge. reviewed US, placental bravo, partial circum placenta efw 20%,saw cardiology, has labs will send in fox, will review poc with f/u 4 weeks with rpt Us Menstrual History Last Menstrual Date Menses Monthly On Bcp Conception Prior Menses Frequency Hcg Plus Date Menarche Onset Age 0103/26/2024 Delivery Information Delivery Date Delivery Type Labor Anesthesia Weeks Gestation Incision Type Labor Labor Length Hrs Delivered By Post Complications Tubal Sterilization Discharge Date Comments Discharge Information Feeding Method Contraceptive Method Maternal HG B and HCT Levels
--- OUTSIDE RECORDS SUMMARY | 2024-09-07 16:31 | XMS_ITS | Clinical Summary ---
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 - Dr. Pino Last visit was about a year ago. She has done a 30d holter monitor She has had an echo Primary is Dr. Pa. 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 - Dr. Pino Last visit was [...] me nstrual period of 03/26/2024 (Exact Date) Encounters Date Type Department Care Team Description 08/02/2024 12:45 PM CDT Office Visit [place] [facility] at [address] [place] [phone] Rosio Brody MD Palpitations (Primary Dx) 07/05/2024 Telephone [facility] [address] [place] [address] Prachi Lyons MD transfer care 06/21/2024 Results Follow-Up [facility] [address] [place] [phone] Prachi Lyons MD Drugs of Abuse Screen, Urine with Reflex Confirmation, CBC with auto differential, Hepatitis B Surface Antigen Blood, Additional followed-up results: 11 06/19/2024 2:25 PM CDT Lab [address] Supervision of other normal , antepartum 06/19/2024 1:00 PM CDT Office Visit [facility] [address] [place] [phone] Prachi Lyons MD Supervision of other normal , antepartum (Primary Dx); 1st degree AV block; Vaginal discharge during in first trimester 06/19/2024 Results Follow-Up [facility] [address] [place] [address] Prachi Lyons MD US Ob Under 14 Weeks 06/15/2024 Telephone [facility] [address] [place] [address] Prachi Lyons MD Headache from Last 3 Months Immunizations Immunization Administration Dates Next Due DTaP 01/25/1997, 5,03/31/1993,01/30,1992 HPV, Unspecified 01/16/2007,09/14/2006, 7 Hep B, Adolescent or Pediatric 07/01/1993,1993,02/03/1993 HiB 01/14/1994, 4,01/30/1993,11/25 IPV 01/25/1997, 5,01/30/1993,12/02 Influenza, Quadrivalent, Spl it, Preservative Free, Intramuscular 01/27/2023 Influenza, Unspecified 09/29/2023(Deferr ed: Patient Refused),10/29/2022(Deferred: Patient Refused) MMR 01/25/1997,01/14/1994 Meningococcal A,C,W,Y-TT (Ak a Menquadfi) 01/16/2007 Tdap 07/15/2006 Surgical History Surgery Date Site/Laterality Comments VAGINAL DELIVERY 09/21/2020 VAGINAL DELIVERY 08/26/2022 WISDOM TOOTH EXTRACTION Medical History Medical History Date Comments Gestational diabetes 1st pregnan cy dx 34 weeks controlled with food Family History Medical History Relation Name Comments Epilepsy Father Lung cancer Maternal Grandmother Cervical cancer Mother Skin cancer Mother Cancer Neg Hx no colon or anastasiia ast cmt 06/19/24 Relation Name Status Comments Father Maternal Grandmother Mother Alive Social History Tobacco Use Types Packs/Day Years [...] on file Sexual Orientation Not on file Obstetrics History Para Term AB IAB SAB Ectopic Multiple Livin g Live Births 4 2 2 1 1 2 2 Date Outcome GA Total Labor Labor/2nd/3rd Weight Sex Type Anes PTL Gifty A1 A5 Name Clin SAB 2020 Term 38w 0d 3.43 kg (7 lb 9 oz) M Vagina l Epidur al N Livin g Kamron Complications:None,Other (Co mment),Forceps delivery Delivery Location:[facility] 2022 Term 38w 0d 3.402 kg (7 lb 8 oz) F Vagina l None N Livin g Lenno n Delivery Location:[facility] [place] Current Comments No htn, getational dm with p regnancy #2. A1DM No ptl. Summary Episode Dates Number of Fetuses Estimated Date of Delivery 05/22/2024 - Present (09/07/2024) 1 12/31/2024 (set by Prachi Lyons MD on 06/19/2024 based on Last Menstrual Period on 03/26/2024 (Exact Date)) Dating Summary Based On ISABELA GA Diff Last Menstrual Period on 03/26/2024 (Exact Date) 12/31/2024 Working Ultrasound on 05/17/2024 01/02/2025 -2d GA:7w1d Ultrasound on 05/28/2024 12/31/2024 Same GA:9w0d Overview and Plan :[place] Support person:Pretty mccallum Delivery Plans Post-Delivery Plans Planned delivery method:Vaginal Feeding intentions:Breast Milk Planned anesthesia:None Acceptable blood products:All Overview The pt was asked if she had her Advance Care Planning in place as she is at the beginning of her . She does not. She wants Maxwell Pearson, , to make decisions for her. She was encouraged to go to the My Chart portal and find the ACP site. She was encouraged to appoint the person she would want to make decisions for her if she can not. She was asked to appoint a second person in case the first is not available. We discussed that there are questions that they can go through to make sure the person knows what her wishes would be. I spent <15 minutes in this conversation with her. Prachi Lyons MD 06/19/24 Vitals Pregravid Weight Height TWG (As of 09/07/2024) Pregrav id BMI 167.6 cm (5' 6) Notes Progress Notes - Office Visi t - 06/19/2024 - GA:12w1d 06/19/2024 - - Marisela Villarreal RN Patient is getting prequel and foresight genetic testing. Tubes given to patient to get drawn at the lab with her new OB labs and then they were returned for us to send out from here. Foresight lot # [id number] Ex 10/28/2024 Prequel lot # [id number] Ex 09/25/2024 Tracking # [id number] MAGGIE Antonio 06/19/2024 - - Prachi Lyons MD Images from the original note were not included. Initial OB Visit Initial Visit (Patient is here for initial visit at 12.1 weeks) Subjective: Pamela Pearson is a 33 y.o., at 12w1d , based on LMP and confirmed by first trimester ultrasound who presents for initial visit. She has done carrier screening. She will try to put the results in her my chart. Morning sickness is getting better. Menstrual History: Menarche Age: 16 years Patient's last menstrual period was 03/26/2024 (exact date). Period Cycle (Days): 31 Period Duration (Days): 6 Period Pattern: Regular Menstrual Flow: Light, Moderate, Heavy Dysmenorrhea Symptoms: Cramping, Nausea, Diarrhea, Headache Sexual History: Sexual History Age of First Sexual Encounter: 19 years # of sexual partners in lifetime: 10 Gender of sexual partners: Men Sexually Transmitted Infection History: None Sexual Assault: No OB History 4 Para 2 Term 2 AB 1 Living 2 SAB 1 IAB Ectopic Multiple Live Births 2 # Outcome Date GA Labor/2nd Weight Sex Type Anes PTL Lv A1 A5 1 SAB 2 Term 09/21/20 38w0d 3.43 kg (7 lb 9 oz) M Vaginal Epidural N Living Name: Kamron Complications: Other (Comment), Forceps delivery Location: Other 3 Term 08/26/22 38w0d 3.402 kg (7 lb 8 oz) F Vaginal None N Living Name: Sahil Location: Other 4 Current Obstetric Comments No htn, getational dm with #2. A1DM No ptl. Objective: BP 108/60 (BP Location: Right arm, Patient Position: Sitting) Ht 167.6 cm (5' 6) Wt 123 lb 12.8 oz (56.2 kg) LMP 03/26/2024 (Exact Date) BMI 19.98 kg/m Physical OB Exam: Last filed by Prachi Lyons MD on 06/19/2024 5:15 PM General Physical Exam HEENT: normal Heart: normal Skin: normal Thyroid: normal Lungs: normal Extremities: normal Lymph Nodes: normal Breasts: normal Neurological: normal grossly Abdomen: normal Pelvic Exam Vulva: normal Vagina: normal Cervix: normal Uterus: 12-14 weeks Adnexa: normal Rectum: normal Spines: average Subpubic Arch: normal See flow sheet for gestation -specific examination and vitals. Assessment: Patient is a 33 y.o., at 12w1d, size = dates. Diagnoses and all orders for this visit: Supervision of other normal , antepartum (Primary) Assessment & Plan: Doing well Orders: - Urine culture Urine, clean voided; Future - Vitamin D 25 hydroxy; Future - Varicella Zoster IgG antibody Blood; Future - Type and screen; Future - Rubella IgG antibody Blood; Future - RPR Blood; Future - HIV 1/2 Antibody plus p24 Antigen Blood; Future - Hepatitis C antibody Blood; Future - Hepatitis B Surface Antigen Blood; Future - CBC with auto differential; Future - Drugs of Abuse Screen, Urine with Reflex Confirmation; Future - Pap and HPV, reflex to HPV Genotypes; Future - N. gonorrhoeae/C. 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 - Dr. Pino Last visit was about a year ago. She has done a 30d holter monitor She has had an echo Primary is Dr. Pa. Chart reviewed Will see if she can get back in to see cardiology My need MFM if they wont. Vaginal discharge during in first trimester Assessment & Plan: Vaginitis profile done Orders: - SureSwab Advanced Vaginitis, TMA Endocervical/vaginal; Future Plan: -dating US completed previously -PNL ordered. We will discuss at her next visit. -To start BASA- we discussed that it may not be indicated for her. -pap and std testing done today. The results will go to the portal. If she doesn't see them in a week, to call the office. -NOB packet reviewed with the pt and her questions were answered. They would like to do cell free dna testing and carrier screening. To gain between 25-35 pounds for the Diet and exercise discussed. Call schedule reviewed. Visits with Kelly discussed. Follow up in 4 weeks. Prachi Lyons MD 06/19/2024 Last Filed Vital Signs Vital Sign Reading [...] 08/02/2024 1:23 PM CDT Plan of Treatment Health Maintenance Due Date Last Done Comments Varicella Vaccines (1 of 2 - 13+ 2-dose series) 2005 Regular Well Visit/Exam 18-64 2010 DTaP/Tdap/Td Vaccine (7 - Td or Tdap) 07/15/2016 07/15/2006, 01/25/1997, 04/02/1994, Additional history exists Depression Screening 09/28/2024 09/29/2023 Influenza Vaccine (Season Ended) 2024 01/27/2023 Cervical Cancer Screening 06/19/2025 06/19/2024 Hepatitis B Screening Completed 07/01/1993 , 03/31/1993, 02/03/1993 HPV Vaccines Completed 01/16/2007, 08/28, 07/15/2006 Hepatitis C Screening Completed 06/19/2024 Pneumococcal vaccine <65 Aged Out No longer eligible based on patient's age to complete this topic Procedures Procedure Name Priority Date/Time Associated Diagnosis [...] with Reflex Confirmation (06/19/2024 2:25 PM CDT) [facility] Amphetamine, ur Not Detected CutOff 500ng/mL Comment: [...] S Final Result LUZ KAT ([place]) 1 [facility] [employer] [place] [address] * (ABNORMAL) Differential, auto (06/19/2024 2:25 PM CDT) Neutrophil abs 7.56(H) 1.50 - 6.50 K/cumm Imm gran abs 0.03 0.00 - 0.10 K/cumm [facility] ([place]OH[place]) Lymphocyte abs 2.22 0.80 - 3.30 K/cumm [facility] ([place]) Monocyte abs 0.56 0.20 - 0.80 K/cumm [facility] ([place]) Eosinophil abs 0.04 0.00 - 0.50 K/cumm [facility] ([place]) Basophil abs 0.04 0.00 - 0.10 K/cumm [facility] ([place]) Neutrophil pct 72.3 % [facility] ([place]) Comment: Interpretive Data Percent cell count reference ranges are not reported, since discordance with absolute values may lead to misinterpretation of CBC data. Current Interpretive Data was last revised on 2017. Imm gran pct 0.3 % [facility] (JOHAN) Comment: Interpretive Data Percent cell count reference ranges are not reported, since discordance with absolute values may lead to misinterpretation of CBC data. Current Interpretive Data was last revised on 2017. Lymphocyte pct 21.2 % [facility] (JOHAN) Comment: Interpretive Data Percent cell count reference ranges are not reported, since discordance with absolute values may lead to misinterpretation of CBC data. Current Interpretive Data was last revised on 2017. Monocyte pct 5.4 % [facility] (JOHAN) Comment: Interpretive Data Percent cell count reference ranges are not reported, since discordance with absolute values may lead to misinterpretation of CBC data. Current Interpretive Data was last revised on 2017. Eosinophil pct 0.4 % [facility] (JOHAN) Comment: Interpretive Data Percent cell count reference ranges are not reported, since discordance with absolute values may lead to misinterpretation of CBC data. Current Interpretive Data was last revised on 2017. Basophil pct 0.4 % [facility] (JOHAN) Comment: Interpretive Data Percent cell count reference ranges are not reported, since discordance with absolute values may lead to misinterpretation of CBC data. Current Interpretive Data was last revised on 2017. Blood 06/19/2024 2:25 PM CDT 06/19/2024 3:57 PM CDT us Prachi Lyons MD LAB BLOOD ORDERABLE S Final Result Performing Organization Address [facility]/ZIP Co de Phone Number LUZ KAT ([place]) 1 [place] [address] * HIV 1/2 Antibody plus p24 Antigen Blood (06/19/2024 2:25 PM CDT) Pathologist [facility] HIV 1/2 ab + p24 ag Nonreactive Nonreactive Comment: Nonreactive for HIV-1 antigen and HIV-1/HIV-2 antibodies. No laboratory evidence of HIV infection. If acute HIV infection is suspected, consider testing for HIV-1 RNA. Testing performed by: [facility], [address] [place] [address], [address] Blood 06/19/2024 2:25 PM CDT 06/19/2024 7:58 PM CDT us Prachi Lyons MD LAB MICROBIOLOGY - GENERAL ORDERABLES Final Result Performing Organization Address [facility]/ZIP Co de Phone Number LUZ KAT ([place]) 1 [place] [address] * (ABNORMAL) CBC with auto differential (06/19/2024 2:25 PM CDT) Pathologist [facility] WBC 10.45(H) 3.80 - 9.90 K/cumm Hgb 13.9 11.9 - 15.5 g/dL [facility] (JOHAN) Hct 40.1 35.6 - 45.5 % [facility] ([place]AN) Plt 309 150 - 400 K/cumm [facility] ([place]) MPV 10.6 9.1 - 12.3 fL [facility] ([place]AN) RBC 4.43 3.90 - 5.20 M/cumm [facility] ([place]) MCV 90.5 81.3 - 96.4 fL [facility] ([place]) MCH 31.4 27.1 - 33.3 [...] ORDERABLE S Final Result Performing Organization Address [facility] Co de Phone Number LUZ KAT ([place]) [address] [place] [address] [place] [address] * Hepatitis C antibody Blood (06/19/2024 2:25 [...] last revised on 2019. Testing performed by: [facility], [address] [place] [address]., [address] Blood 06/19/2024 2:25 PM CDT 06/19/2024 8:00 PM CDT us Prachi Lyons MD LAB MICROBIOLOGY - GENERAL ORDERABLES Final Result Performing Organization Address [facility] Co de Phone Number LUZ KAT ([place]) 1 [facility] [place] [address] * ABO/Rh (06/19/2024 2:25 PM CDT) ABO/Rh A Positive Blood 06/19/2024 2:25 PM CDT 06/19/2024 3:57 PM CDT Narrative LUZ KAT ([place]) - 06/19/2024 4:59 PM CDT Has the patient had Daratumumab or Isatuximab in the past 6 months?->Unknown Prachi Lyons MD LAB BLOOD BANK TEST ORDERABLES Final Result LUZ KAT ([place]) 1 [facility] [place] [employer] [place] [address] * (ABNORMAL) Vitamin D 25 hydroxy (06/19/2024 2:25 PM CDT) Pathologist [facility] Vitamin D 25-OH 24(L) 30 - 80 ng/mL Blood 06/19/2024 2:25 PM CDT 06/19/2024 3:57 PM CDT Prachi Lyons MD LAB BLOOD ORDERABLE S Final Result Performing Organization Address [facility] Co de Phone Number LUZ KAT ([place]) [address] [facility] [place] [employer] [place] [address] * (ABNORMAL) Rubella IgG antibody Blood (06/19/2024 2:25 PM CDT) [facility] Rubella IgG Nonreactiv e(A) Comment: Nonreactive: No detectable antibody to rubella. Such individuals are presumed to be uninfected with rubella and to be susceptible to primary infection. Testing performed by: [facility], [address] [facility], [place]., [address] Blood 06/19/2024 2:25 PM CDT 06/19/2024 6:24 PM CDT Prachi Lyons MD LAB MICROBIOLOGY - GENERAL ORDERABLES Final Result LUZ KAT ([place]) 1 [facility] [place] [employer] [address] * RPR Blood (06/19/2024 2:25 PM CDT) RPR Nonreactive Nonreactive Comment:Testing performed by : [facility], [address] [place] [address]., [address] Blood 06/19/2024 2:25 PM CDT 06/19/2024 8:04 PM CDT us Prachi Lyons MD LAB MICROBIOLOGY - GENERAL ORDERABLES Final Result LUZ SHEY ([place]) 1 [facility] [place] [address] * Hepatitis B Surface Antigen Blood (06/19/2024 2:25 PM CDT) HepBsAg Nonreactive Nonreactive Comment:Testing performed by : [facility], [address] [place] [address], [place]., [address] Blood 06/19/2024 2:25 PM CDT 06/19/2024 8:00 PM CDT us Prachi Lyons MD LAB MICROBIOLOGY - GENERAL ORDERABLES Final Result Performing Organization Address [facility] Co de Phone Number LUZ KAT ([place]) 1 [facility] [place] [address] * Antibody screen (06/19/2024 2:25 PM CDT) Sourav, indirect, Gel Interpretation Negative ABSC Blood 06/19/2024 2:25 PM CDT 06/19/2024 3:57 PM CDT Narrative LUZ KAT ([place]) - 06/19/2024 4:59 PM CDT Has the patient had Daratumumab or Isatuximab in the past 6 months?->Unknown us Prachi Lyons MD LAB BLOOD BANK TEST ORDERABLES Final Result JESUNARA KAT ([place]) 1 [facility] [place] [address] * Urine culture Urine, clean voided (06/19/2024 2:25 PM CDT) [facility] Report Final Report: Less than 100,000 colonies/mL (clinically insignificant growth based on current clinical standards) Comment:Testing performed by : [facility], [address] [place]., [address] Organism (CLINICALLY INSIGNIFICANT GROWTH [facility] ([place]) Urine, clean voided 06/19/2024 2:25 PM CDT 06/19/2024 6:53 PM CDT Narrative LUZ SHEY ([place]) - 06/20/2024 7:41 PM CDT Testing performed by [facility] Microbiology Laboratory ([phone]) us Prachi Lyons MD LAB MICROBIOLOGY - GENERAL ORDERABLES Final Result LUZ KAT ([place]) 1 [facility] [place] [address] * (ABNORMAL) Varicella Zoster IgG antibody Blood (06/19/2024 2:25 PM CDT) [facility] VZV IgG Equivocal( A) Reactive Comment: Equivocal: Presence or absence of detectable antibodies to Varicella-zoster virus cannot be determined. Submit new specimen if clinically indicated. Testing performed by: [facility], [address] [place] [address], [place]., [address] Blood 06/19/2024 2:25 PM CDT 06/19/2024 6:24 PM CDT us Prachi Lyons MD LAB MICROBIOLOGY - GENERAL ORDERABLES Final Result LUZ KAT ([place]) 1 [facility] [place] [address] * Pap and HPV, reflex to HPV Genotypes (06/19/2024 2:03 PM CDT) CLINICAL INFORMATION: [facility] Comment:None given LMP [facility] Comment:NONE GIVEN Previous Pap [facility] Comment:NONE GIVEN Prev. Bx [facility] Comment:NONE GIVEN SOURCE: [facility] Comment:Cervix, Endocervix Pap, specimen adequacy [facility] Comment: Satisfactory for evaluation. Endocervical/transformation zone component present. Age and/or menstrual status not provided HPV interp [facility] Comment: Cytology Results: Negative for intraepithelial lesion or malignancy. COMMENTS [facility] Comment: This Pap test has been evaluated with computer assisted technology. [facility] Comment: GAL SAUNDERS(ASCP) CT Screening Location: [place] [address] Administration RAMIN Ramirez [address] Comment [facility] Comment: EXPLANATORY NOTE: The Pap is a [...] High Risk E6/E7 Not Detected NOT DETECTED [facility] Comment: Not Detected High Risk HPV types (16,18,31,33,35,39,45,51,52, 56,58,59,66,68) were not detected. Other HPV types which cause anogenital lesions may be present. The significance of the other types of HPV in malignant processes has not been established. Methodology: Real Time PCR 06/19/2024 2:03 PM CDT 06/20/2024 11:05 PM CDT us Prachi Lyons MD LAB CYTOLOGY ORDERA BLES Final Result [facility] [address] [address] RAMIN [place] [address] [place] [address] [place] [address] * SureSwab Advanced Vaginitis, TMA Endocervical/vaginal (06/19/2024 2:03 PM CDT) SureSwab(R) ADV Bacterial vaginosis (BV), TMA NEGATIVE NEGATIVE [facility] Bárbara species NOT DETECTED NOT DETECTED [facility] Bárbara glabrata NOT DETECTED NOT DETECTED [facility] Comment: Bárbara species C. albicans, C. tropicalis, C. parapsilosis, and/or C. dubliniensis can be detected, but not differentiated, in the Bárbara spp. result. Trichomonas vaginalis (TV), TMA NOT DETECTED NOT DETECTED [facility] Endocervical/vag inal 06/19/2024 2:03 PM CDT 06/20/2024 8:51 AM CDT us Prachi Lyons MD LAB MICROBIOLOGY - GENERAL ORDERABLES Final Result Performing Organization Address City/[facility]/ZIP Co de Phone Number [facility] [address] [place] [address] * N. gonorrhoeae/C. trachomatis Amplification Thin prep-Endocervical (06/19/2024 2:03 PM CDT) C. trachomatis RNA NOT DETECTED NOT DETECTED [facility] N. gonorrhoeae RNA NOT DETECTED NOT DETECTED [facility] Comment [facility] Comment: The analytical performance characteristics of this assay, when used to test SurePath(TM) specimens have been determined by [facility]. The modifications have not been cleared or approved by the FDA. This assay has been validated pursuant to the CLIA regulations and is used for clinical purposes. For additional information, please refer to https://education.Cortexyme/faq/TWF584 (This link is being provided for information/ educational purposes only.) Thin prep-Endocervica l (None) 06/19/2024 2:03 PM CDT 06/20/2024 11:05 PM CDT us Prachi Lyons MD LAB MICROBIOLOGY - GENERAL ORDERABLES Final Result Performing Organization Address City/[facility]/ZIP Co de Phone Number [facility] [address] [place] [address] from Last [address] [phone] [employer] [place] CLAIMS Care Teams Admin Assistant Relationship Specialty Start Date End Date Mayur Pa MD [address] [place] [address] PCP - General Family Medicine 09/29/23
[2024-09-07 16:45] VITALS: BP 98/59; PULSE 91
[2024-09-07 17:00] VITALS: BP 98/59; PULSE 81
[2024-09-07 17:15] VITALS: BP 97/60; PULSE 79
--- NOTE | 2024-09-07 17:15 | PC.NURSE ---
Called Radha Sheriff CNM with pt status. Informed of pt complaints of cramping, bloody mucus x1, and feeling of needing to have a bowel movement. Pt states that she has not felt any of those feeling in about 1.5 hrs, and had no bleeding or spotting when going to the bathroom. 2 contractions noted on tracing about 40 min apart. Tracing appropriate for gestational age. June D/C home.
--- NOTE | 2024-09-07 17:20 | PC.NURSE ---
Pt states that she has noticed increased discharge or possible leaking. Will perform ROM plus.
[2024-09-07 17:58] LABS: OBXCEM ROM Plus Negative (Negative)
--- NOTE | 2024-09-11 08:03 | PM.OBTRLD ---
OB - Triage/Final Diagnosis Visit Information Date of evaluation: 09/07/24 Reason for evaluation: other (abd cramping) Comments/Additional reasons for admission: I have assessed the risk for this patient, Pamela Pearson, and determined that she would benefit from observation care. Evaluation Laboratory results: Laboratory Tests 09/07/24 17:56 Membranes Rupture Rom plus negative
== END 2024-09-07 17:57 | disposition home or self-care (01) ==
PROVIDERS: Advanced Practice Midwife; Admitting Provider Obstetrics & Gynecology; PCP Family Medicine; Visit Provider Obstetrics & Gynecology
DX: O26.892 Other specified pregnancy related conditions, second trimester (principal); R10.9 Unspecified abdominal pain; Z3A.23 23 weeks gestation of pregnancy
CPT/HCPCS: 84112; G0378; G0379

== ENCOUNTER 2024-12-14 22:41 | Inpatient (IN) | payer OTHER, SELFPAY ==
[2024-12-14] VITALS (12 sets, daily range): BP systolic 123–135; BP diastolic 80–116; PULSE 99–152; TEMP 36.4; O2SAT 96–100
--- OUTSIDE RECORDS SUMMARY | 2024-12-14 23:16 | XMS_ITS | Clinical Summary ---
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
--- OUTSIDE RECORDS SUMMARY | 2024-12-14 23:16 | XMS_ITS | Clinical Summary ---
Author Organization [facility] [facility] [address] Address [address] [place] [address] 5th [place] [address] Care Team Providers Care Incident Response Coordinator Name Role Phone Mayur Pa MD Primary Care Provider [phone] Allergies No known active allergies Medications multivitamin tabletIndication s:Vitamin Deficiency Prevention Take 1 tablet by mouth Active Active Problems Problem Noted Date Diagnosed Date Maternal varicella, non-immune 06/21/2024 Overview (06/21/2024): 06/21/2024-will plan to vaccinate Not immune to rubella 06/21/2024 Overview (06/21/2024): 06/22/2024-will plan to vaccinate Supervision of other normal , antepartu m 06/19/2024 Assessment & Plan (10/02/2024 9:03 AM CDT): Stable and continues with routine exams. Will continue to follow with OBGYN. Will continue to monitor. Assessment & Plan (06/19/2024 5:14 PM CDT): [...] this with both pregnancies She has a optical designer here. - Dr. Pino Last visit was about a year ago. She has done a 30d holter monitor She has had an echo Primary is Dr. Pa. Assessment & Plan (06/19/2024 5:13 PM CDT): She has had this with both pregnancies She has a optical designer here. - Dr. Pino Last visit was [...] Encounters Date Type Department Care Team Description 11/08/2024 1:00 PM CDT Office Visit [employer] [facility] Operator at [address] [place] [id number] Rosio Brody MD Palpitations (Primary Dx) 11/05/2024 Telephone [facility] [address] [phone] Mayur Pa MD 10/02/2024 9:00 AM CDT Office Visit [facility] [address] [phone] Tabby Merchant NP Annual physical exam (Primary Dx); Supervision of other normal , antepartum; BMI 23.0-23.9, adult from Last 3 Months Immunizations Immunization Administration Dates Next Due DTaP 01/25/1997, 5,03/31/1993,01/30,1992 HPV, Unspecified 01/16/2007,09/14/2006, 7 Hep B, Adolescent or Pediatric 07/01/1993,1993,02/03/1993 HiB 01/14/1994, 4,01/30/1993,11/25 IPV 01/25/1997, 5,01/30/1993,12/02 Influenza, Quadrivalent, Spl it, Preservative Free, Intramuscular 01/27/2023 Influenza, Unspecified 10/02/2024(Deferr ed: Patient Refused),10/02/2024(Deferred: Patient Refused),10/30/2023(Deferred: Patient Refused),10/30/2023(Deferred: Patient Refused),09/29/2023(Deferred: Patient Refused),10/29/2022(Deferred: Patient Refused) MMR 01/25/1997,01/14/1994 Meningococcal A,C,W,Y-TT (Ak a Menquadfi) 01/16/2007 Tdap 07/15/2006 Surgical History Surgery Date Site/Laterality Comments VAGINAL DELIVERY 09/21/2020 VAGINAL DELIVERY 08/26/2022 WISDOM TOOTH EXTRACTION Medical History Medical History Date Comments Gestational diabetes 1st pregnan cy dx 34 weeks controlled with food Menstrual problem 2018 Family History Medical History Relation Name Comments [...] points, staff should administer the PHQ-9) 0 10/02/2024 Estimated Date of Delivery Comme nts Yes [...] g Kamron Complications:None,Other (Co mment),Forceps delivery Delivery Location:[facility] in [place] 2022 Term 38w 0d 3.402 kg (7 lb 8 oz) F Vagina l None N Livin g Lenno n Delivery Location:[facility] in [place] Current Comments No htn, getational dm with p regnancy #2. A1DM No ptl. Summary Episode Dates Number of Fetuses Estimated Date of Delivery 05/22/2024 - Present (12/14/2024) 1 12/31/2024 (set by Prachi Lyons MD [...] Vitals Pregravid Weight Height TWG (As of 12/14/2024) Pregrav id BMI 167.6 cm (5' 6) Notes Progress Notes - Office Visi t - 06/19/2024 - GA:12w1d 06/19/2024 - - Marisela Villarreal RN Patient is getting prequel and foresight genetic testing. Tubes given to patient to get drawn at the lab with her new OB labs and then they were returned for us to send out from here. Foresight lot # [id number] Ex 10/28/2024 Prequel lot # [id number] Ex 09/25/2024 Tracking # [id number] MAGGIE Antonio 06/19/2024 - - Prachi Lyons [...] this with both pregnancies She has a optical designer here. - Dr. Pino Last visit was [...] Sign Reading Time Taken Comments Blood Pressure 105/71 11/08/2024 1:03 PM CDT Pulse 110 11/08/2024 1:03 PM CDT Temperature 36.7 C (98.1 F) 09/29/2023 9:55 AM CDT Respiratory Rate 18 10/02/2024 8:54 AM CDT Oxygen Saturation 98% 10/02/2024 8:54 AM CDT Inhaled Oxygen Concentration - - Weight 69.4 kg (153 lb) 11/08/2024 1:03 PM CDT Height 167.6 cm (5' 6) 11/08/2024 1:03 PM CDT Body Mass Index 24.69 11/08/2024 1:03 PM CDT Plan of Treatment Health Maintenance Due Date Last Done Comments Varicella Vaccines (1 of 2 - 13+ 2-dose series) 2005 DTaP/Tdap/Td Vaccine (7 - Td or Tdap) 07/15/2016 07/15/2006, 01/25/1997, 04/02/1994, Additional history exists Influenza Vaccine (#1) 2024 01/27/2023 Cervical Cancer Screening 06/19/2025 06/19/2024 Depression Screening 10/02/2025 10/02/2024, 09/29/19 24 Regular Well Visit/Exam 18-64 10/02/2025 10/02/2024 Hepatitis B Screening Completed 07/01/1993 , 03/31/1993, 02/03/1993 HPV Vaccines Completed 01/16/2007, 08/28, 07/15/2006 Hepatitis C Screening Completed 06/19/2024 Pneumococcal vaccine <65 Aged Out No longer eligible based on patient's age to complete this topic Procedures Procedure Name Priority Date/Time Associated Diagnosis Comments ECG 12-LEAD Routine 11/08/2024 1:05 PM CDT Palpitations HEPATITIS C ANTIBODY Routine 06/19/2024 2:25 PM CDT Supervision of other normal , antepartum PAP AND HPV, REFLEX TO HPV GENOTYPES Routine 06/19/2024 2:03 PM CDT from Last 3 Months or Most Recently Relevant to Health Maintenance Results * ECG 12 lead (11/08/2024 1:05 PM CDT) Rosio Brody MD ECG ORDERABLES Final Result * Hepatitis C antibody Blood (06/19/2024 2:25 [...] on 2019. Testing performed by: [facility], [address] [place] [address], [place]., [address] Blood 06/19/2024 2:25 PM CDT 06/19/2024 8:00 PM CDT Prachi Lyons MD LAB MICROBIOLOGY - GENERAL ORDERABLES Final Result [facility] ([place]) [facility] Department of Laboratories [place], [place] [id number] * Pap and HPV, reflex to HPV Genotypes (06/19/2024 2:03 PM CDT) CLINICAL INFORMATION: [facility] Comment:None given LMP [facility] Comment:NONE GIVEN Previous Pap [facility] Comment:NONE GIVEN Prev. Bx [facility] Comment:NONE GIVEN SOURCE: [facility] Comment:Cervix, Endocervix Pap, specimen adequacy [facility] Comment: Satisfactory for evaluation. Endocervical/transformation zone component present. Age and/or menstrual status not provided HPV interp [facility] Comment: Cytology Results: Negative for intraepithelial lesion or malignancy. COMMENTS [facility] Comment: This Pap test has been evaluated with computer assisted technology. [facility] Comment: GAL SAUNDERS(ASCP) CT Screening Location: [place] [address] [place] [address] Comment [facility] Comment: EXPLANATORY NOTE: The Pap is [...] High Risk E6/E7 Not Detected NOT DETECTED [facility] Comment: Not Detected High Risk HPV types (16,18,31,33,35,39,45,51,52, 56,58,59,66,68) were not detected. Other HPV types which cause anogenital lesions may be present. The significance of the other types of HPV in malignant processes has not been established. Methodology: Real Time PCR 06/19/2024 2:03 PM CDT 06/20/2024 11:05 PM CDT us Prachi Lyons MD LAB CYTOLOGY ORDERA BLES Final Result [facility] [address] [place] [address] [facility] [address] [place] [address] from Last 3 Months or Most Recently Relevant to Health [place] [id number] [employer] Care Teams Incident Response Coordinator Relationship Specialty Start Date End [place] [address] PCP - General Family Medicine 09/29/23
[2024-12-14 23:32] LABS: Hematocrit 40.7 % (37.0-47.0); Hemoglobin 13.5 g/dL (12.0-15.0); Immature Granulocyte Percent A 0.9 % (0-0.5); Lymphocytes Absolute Auto 2.37 K/mm3 (0.9-3.2); Mean Corpuscular HGB Conc 33.2 g/dl (32-36); Mean Corpuscular Hemoglobin 29.7 pg (26-34); Mean Corpuscular Volume 89.5 fl (80-100); Nucleated Red Blood Cells Absolute Auto 0.000 K/mm3 (0.0-0.012); Nucleated Red Blood Cells Perc 0.0 % (0.0-0.2); Platelet Count Result 262 k/mm3 (150-375); Red Blood Count 4.55 M/mm3 (4.2-5.4); White Blood Count 10.8 K/mm3 (4.5-10.0)
[2024-12-15] VITALS (58 sets, daily range): BP systolic 99–144; BP diastolic 52–81; PULSE 60–152; RESP 16–18; TEMP 36.6–37.1; O2SAT 94–100; BMI 25.9
[2024-12-15 00:10] LABS: Syphilis IgG/IgM Antibody Non-Reactive (Nonreactive)
--- NOTE | 2024-12-15 02:42 | WPDOBADMIT ---
Obstetrics - Admit Note Admission Note: record reviewed. No pertinent additions to the history and/or any subsequent changes in the physical findings that are not consistent with the expected course of the were found. Patient presents in labor, SVE now /-1; AROM of small amount of clear fluid. FHR category I. Anticipate . Additions to the history and/or subsequent changes in the physical findings follow. None.
[2024-12-15] MEDS: OXYTOCIN 30 UNITS/NS 500 ML 30 UNITS/500 ML BAG 999 UNITS IV CONT (04:33)
--- NOTE | 2024-12-15 04:40 | P.PCNOB_ITS ---
OB - Vaginal Delivery Note Procedure Delivery date: 12/15/24 Delivery augmentation: Rupture of Membranes Delivery monitor: External FHT and External Uterine Route of delivery: Episiotomy description: None Laceration Description: Perineal - 1st Degree (hemostatic) Delivery repair: vicryl Specimen: No Quantitative Blood Loss (ml): 50 Anesthesia type: Epidural Disposition: Floor Complications: No immediate complications Narrative: See H&P and notes for details on patient's admission and labor. She progressed to complete cervical dilation and at the appropriate time began pushing. With adequate expulsive efforts by the mother, the baby's head was delivered without difficulty. Nuchal cord was not present. The baby's right shoulder was anterior and delivered under the pubic symphysis without difficulty. The posterior shoulder and the rest of the baby delivered without difficulty. The umbilical cord was doubly clamped and cut after 60 seconds of delayed cord clamping. Care of the was then assumed by the nursing staff. [place] Baby Date of : 12/15/24 Time of : 04:27 Gestational Age by Date: 37 Infant gender: Male presentation: vertex position: Left Occiput Anterior Placenta delivery description: Spontaneous Cord Vessel Description: 3 Vessels and Delayed Cord Clamping score one minute: 8 score five minutes: 9
[2024-12-15] MEDS: OXYTOCIN 30 UNITS/NS 500 ML 30 UNITS/500 ML BAG 125 UNITS IV CONT (05:08)
--- NOTE | 2024-12-15 05:36 | LDADM ---
This patient, Pamela Pearson, was admitted to Labor/Delivery/Recovery 106 on 12/14/24 at 22:41. Plans for labor, pain management and were discussed with patient. Patient/family oriented to hospital policies and general routines including ID bracelet, bed and alarms, visiting hours, pain management, procedures, bathroom and other care routines, personal items, smoking policy, room service/diet and guest tray routines, infant security routines, and visiting hours. Patient/Family are encouraged to report perceived risks to care and to ask questions if they do not understand what they are told or what they should do. See OBIX for further documentation.
[2024-12-15] MEDS: WITCH HAZEL 40 PADS 1 PAD TOPICAL (07:00)
[2024-12-15] MEDS: BENZOCAINE 20% AER SPR (*SP) 56 GM CAN 1 SPRAY TOPICAL (07:00)
--- NOTE | 2024-12-15 10:30 | PC.NURSE ---
Met with patient regarding needs and education. Mother verbalizes she is able to independently latch infant. She denies any nipple discomfort and is responsively . Baby is in the normal sleepy state and needs some stimulation to stay awake at breast. He just latched and fed for 23 minutes and mom states that she feels confident with . She successfully breastfed her two other children. is currently meeting outcomes for weight, output, jaundice, blood sugar and feeding frequencies of 8-12 times in 24 hours. Mother declines any additional assistance or education at this time. Mother is encouraged to call for assistance if her infant doesn?t latch, pain with latching, questions or concerns. Father is present and supportive. Mother voiced understanding of information shared. Reported to the Primary RN.
[2024-12-16 04:22] LABS: Hematocrit 35.1 % (37.0-47.0); Hemoglobin 11.6 g/dL (12.0-15.0)
[2024-12-16 07:45] VITALS: BP 107/63; PULSE 63
[2024-12-16 07:46] VITALS: PULSE 69; O2SAT 98
[2024-12-16 08:00] VITALS: TEMP 36.8
--- NOTE | 2024-12-16 08:16 | PC.NURSE ---
Patient informed on viewing the discharge video Mother & Baby Care, The First Two Weeks. Patient was given the opportunity and encouraged to ask questions. Patient verbalized understanding of information shared and has been given the mother/baby guide for home reference.
--- NOTE | 2024-12-16 09:34 | P.PNOB_ITS ---
OB - PN: Subj Subjective Date/time seen: 12/16/24 09:34 Interval history: PPD#1 s/p Doing well, cramping with Voiding without issue Tolerating general diet Ready for discharge today OB - PN: Obj Data Labs 12/16/24 04:14 Labs: Laboratory Results - last 24 hr 12/16/24 04:14 Hgb 11.6 L Hct 35.1 L OB - PN A/P Assessment and Plan (1) (spontaneous vaginal delivery): Code(s): O80 - Encounter for full-term uncomplicated delivery Status: Acute Plan day: 1 Plan: routine care and discharge home Time Spent With Patient Time: Total time spent is greater than 50% in coordination of care (as documented) at patient's floor/unit and/or counseling patient: Review of Systems 2 Review of Systems: All systems reviewed & are unremarkable except as noted in HPI and below Exam 2 Const: General: comfortable and no acute distress O rientation/consciousness: patient oriented x3 Resp: Effort & Inspection: normal respiratory effort
--- NOTE | 2024-12-16 09:38 | P.DS_ITS ---
DS: Admitting Diagnosis Discharge Date 12/16/24 Admitting Diagnosis labor DS: Discharge Diagnosis Discharge Diagnosis (1) (spontaneous vaginal delivery): Code(s): O80 - Encounter for full-term uncomplicated delivery Status: Acute OB - DS: Summary OB Procedures : None OB Procedures Intrapartum: Spontaneous Vag Delivery OB Procedures: : None Peripartum Data Laceration Description: Perineal - 1st Degree (hemostatic) Episiotomy description: None Time Spent with Patient Time attestation: Total time spent providing and/or coordinating discharge services: DS: Data Data Completed and Pending Labs on day of discharge: Labs from last 24 hours 12/16/24 04:14 Hgb 11.6 L Hct 35.1 L Discharge Plan Discharge Attending physician on discharge: Sedrick Phelan Consulting providers: Tigist Sheriff Discharging Clinician: Sedrick Phelan Patient Disposition: Home Activity: may shower, as tolerated and pelvic rest Diet: as tolerated Patient Instructions: Antibiotic Form Patient Language: Nepali Stand Alone Forms: General Discharge Information Follow-up/Referrals: Tigist Sheriff CNM [Certified Nurse Sr. Unix System Administrator, MENTAL HEALTH CLINICIAN] - 4 Weeks Discharge Medications: New ibuprofen 600 mg Tablet 600 mg PO Q6H PRN (Reason: Cramping) Qty: 30 0RF Continued PNV no.95-ferrous fumarate-FA [] 28 mg iron- 800 mcg tablet 1 tablet PO DAILY Date of admission: 12/14/24 22:41 Primary Care Provider: Ember,Mayur Valdez Admitting Provider: Jesus Pineda Attending physician on admission: Jesus Pineda Condition: Stable
[2024-12-17 08:30] VITALS: BP 116/67; PULSE 89; RESP 18; TEMP 36.6; O2SAT 100
== END 2024-12-16 10:35 | disposition home or self-care (01) | DRG 807 ==
LOC: ANHLDR 23:27 → ANHOBPP 12-16 09:37 → ANHLDR 12-19 09:19 → ANHOBPP 12-19 09:19
PROVIDERS: Advanced Practice Midwife; Admitting Provider Obstetrics & Gynecology; PCP Family Medicine; Visit Provider Obstetrics & Gynecology
DX: O70.0 First degree perineal laceration during delivery (principal); Z37.0 Single live birth; Z3A.37 37 weeks gestation of pregnancy
CPT/HCPCS: 36415; 85014; 85018; 85025; 86593; 86850; 86900; 86901; A9270; J2590